=== PATIENT | male | born 1955 | race Caucasian/White ===

== ENCOUNTER → 2017-01-08 | Outpatient (CLI) | payer OTHER ==
[~2017-01-08] MED LIST: ALLOPURINOL300 MG PO; AMLODIPINE BES2.5 MG PO; FENTANYL1 EAC1 TD; LISINOPRIL5 MG PO; PERCOCET 10/3251 TAB PO; ROSUVASTATIN CA40 MG PO
--- NOTE | ~2017-01-08 | MR31 ---
[facility] A Service of [facility] RADIOLOGY TEXT RESULTS PATIENT: CHRIS VITALE LOCATION: [facility] : 55 UNIT #: [id number] AGE: [address]: Andrei Golden MD SEX: M ORDER DR: [id number] [facility] [address] [place], [place] [address] [id number] O MR#: [id number] Acc #: [id number] NAME: CHRIS VITALE. : 1955 SEX: M STUDY DATE/TIME: 01/08/2017 10:34 UNIT: [facility] ROOM: STUDY DESCRIPTION: MR Cervical WWo Contrast Attending Physician: Andrei Golden M.D. Ordering Physician: Andrei Golden M.D. Primary Care Physician: Aaron Croft M.D. MRI CENTER REPORT This report is preliminary unless electronic signature is present. EXAM MRI of the cervical spine with and without contrast dated 01/08/2017. COMPARISON None. HISTORY Neck pain. Surgery in the neck in 1979. Numbness in both hands. Patient has difficulty turning neck to the left and swallowing problems for over a year now. It is worsening every day. FINDINGS Multisequence, multiplanar imaging of the cervical spine was obtained with and without contrast. GFR measured greater than 60. 15 mL of MultiHance was administered intravenously. Status post anterior cervical fusion at C5-6. Bony fusion of the vertebral bodies is seen across the disc at C5-6. Prominent endplate osteophytes are noted anteriorly at C4-5. Cord is displaced posteriorly due to the presence of disc osteophyte complex at C6-7. No obvious cord signal change is noted yet. Pre and paravertebral soft tissues demonstrate postoperative changes without any large drainable fluid collection. There are no old studies for comparison. C2-3: Disc bulge with mild bilateral facet changes. No canal stenosis or neural foraminal narrowing. C3-4: Disc osteophyte complex which is slightly prominent in the center suggestive of small protrusion. Borderline size to mild canal stenosis is seen. There is superior right neural foraminal narrowing. Mild to moderate right facet hypertrophic change is seen. C4-5: Concentric disc bulge with moderate to severe right and mild to moderate left facet hypertrophic change. Superior mild to moderate left STS. [facility] A Service of [facility] RADIOLOGY TEXT RESULTS PATIENT: CHRIS VITALE LOCATION: [facility] : 55 UNIT #: [id number] AGE: [address]: Andrei Golden MD SEX: M ORDER DR: neural foraminal narrowing is seen with borderline size canal. C5-6: Fused level without any significant canal stenosis or neural foraminal narrowing. C6-7: Disc osteophyte complex with moderate canal stenosis. The posterior osteophytes touch the anterior aspect of the cord without causing any significant cord signal change yet. Cord is displaced posteriorly. A moderate superior left neural foraminal narrowing is seen but it is patent inferiorly. Relatively worse level. C7-T1: Concentric disc bulge with severe left hypertrophic change. Mild left neural foraminal narrowing and mild to moderate canal stenosis. Bilateral ligamentum flavum thickening contributes to it. Post-contrast sequences do not demonstrate any significant focal enhancing mass. IMPRESSION 1. Status post anterior cervical bony fusion at C5-6. 2. Degenerative changes are noted at multiple levels, worse at C6-7 with moderate canal stenosis and mild impingement on the cord with cord displacement posteriorly. No obvious cord signal change is seen yet. 3. Varying degrees of neural foraminal narrowing is seen as described above. Dictated by... Nina Pickett M.D. THIS IS AN ELECTRONICALLY VERIFIED REPORT Nina Pickett M.D. at 01/13/2017 8:59 AM CPR/rnr TD: 01/12/2017 15:34 JOB #: [id number] MRI CENTER REPORT Page 1 of 1 COPY
[2017-01-08 12:06] LABS: POC - CREATININE 0.84 mg/dL (0.64-1.27); POC - GFR >60.0 mL/min (>60)
== END | disposition home or self-care (01) ==
LOC: CMRI 09:24
PROVIDERS: Pain Medicine Pain Medicine
DX: M54.12 Radiculopathy, cervical region (principal); Z98.1 Arthrodesis status
CPT/HCPCS: 72156; 82565; A9577